=== PATIENT | female | born 1990 | race African-American/Black ===

== ENCOUNTER 2017-04-05 04:31 | Emergency (ER) | payer OTHER ==
[2017-04-05 05:03] VITALS: BMI 30.9
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
[2017-04-05 08:07] VITALS: BP 114/76; PULSE 70; TEMP 98.2
[2017-04-05] MEDS ORDERED: IBUPROFEN 600 MG TABLET (FP) PO ONE ×2 (08:26→08:37)
== END 2017-04-05 08:41 | disposition home or self-care (01) ==
LOC: SUPCPDRO 04:31 → JER 04:31
DX: M25.561 Pain in right knee (principal); V49.9XXA Car occupant (driver) (passenger) injured in unspecified traffic accident, initial encounter; Y93.89 Activity, other specified; Y92.410 Unspecified street and highway as the place of occurrence of the external cause
CPT/HCPCS: 73560-TC-RT; 84703; 99282-25